=== PATIENT | male | born 1940 | race Caucasian/White ===

== ENCOUNTER → 2017-07-19 | Outpatient (CLI) | payer OTHER, MEDICARE ==
[~2017-07-19] MED LIST: ASPI325T17 PO; ATEN25TA PO; BUDE10.2 INH; FLUT1DIS3 INH; IPRA3AMP18 NEB; LEVO750T26 PO; METH4TAB2 PO; METO50TA82 PO; ONDA4VIA4 PO; OXYC-302 PO; POLY17PO5 PO; TIOT18CA INH; TRAM-47 PO
== END | disposition home or self-care (01) ==
LOC: CVU 09:12
PROVIDERS: ATTEND Surgery
DX: I70.293 Other atherosclerosis of native arteries of extremities, bilateral legs (principal); Z86.718 Personal history of other venous thrombosis and embolism
CPT/HCPCS: 93922; 93925; 93970

== ENCOUNTER → 2017-10-23 | Outpatient (CLI) | payer OTHER, MEDICARE | END | disposition home or self-care (01) | LOC: PETCFH 09:41 | PROVIDERS: ATTEND Registered Nurse | DX: R41.3 Other amnesia (principal) | CPT/HCPCS: 78608; A9552 ==

== ENCOUNTER → 2017-10-29 | Outpatient (CLI) | payer OTHER, MEDICARE | END | disposition home or self-care (01) | LOC: CARD 08:50 | PROVIDERS: ATTEND Registered Nurse | DX: R41.3 Other amnesia (principal) | CPT/HCPCS: 95819 ==

== ENCOUNTER → 2018-06-26 | Outpatient (CLI) | payer MEDICARE ==
[~2018-06-26] MED LIST changes: -ONDA4VIA4 PO; +ONDA4VIA8 PO
== END | disposition home or self-care (01) ==
LOC: CFH 13:26
PROVIDERS: ATTEND Family Medicine
DX: I35.8 Other nonrheumatic aortic valve disorders (principal); I34.8 Other nonrheumatic mitral valve disorders; I10 Essential (primary) hypertension; J44.9 Chronic obstructive pulmonary disease, unspecified; Z87.891 Personal history of nicotine dependence
CPT/HCPCS: 93306

== ENCOUNTER 2018-12-04 13:02 | Outpatient (CLI) | payer OTHER | END 2018-12-04 23:59 | disposition home or self-care (01) | LOC: CARD 13:02 | PROVIDERS: ATTEND Student in an Organized Health Care Education/Training Program | DX: R41.82 Altered mental status, unspecified (principal) | CPT/HCPCS: 95819 ==

== ENCOUNTER 2019-01-29 16:50 | Inpatient (IN) | payer MEDICARE, OTHER ==
[~2019-01-29] VITALS: Ht 167.6 cm; Wt 63.0 kg
[~2019-01-29 16:50] MED LIST changes: +ONDA4VIA60 PO; -ONDA4VIA8 PO
[2019-01-29] MEDS ORDERED: SODIUM CHLORIDE FLUSH 10ML SYR IVF ONE (17:00)
[2019-01-29] MEDS ORDERED: methylPREDNISolone SOD SUCC 125 MG/2 ML IVP ONE (17:00)
[2019-01-29] MEDS ORDERED: ALBUTEROL/IPRATROPIUM 2.5MG/0.5MG, 3 ML NPPB SCH (17:00)
[2019-01-29] MEDS ORDERED: ACETAMINOPHEN 325 MG TABLET PO ONE (17:00)
[2019-01-29] MEDS ORDERED: methylPREDNISolone SOD SUCC 125 MG/2 ML ONE ×2 (17:18→17:29)
[2019-01-29] MEDS ORDERED: ACETAMINOPHEN 325 MG TABLET ONE ×2 (17:18→17:29)
[2019-01-29] MEDS ORDERED: ALBUTEROL/IPRATROPIUM 2.5MG/0.5MG, 3 ML ONE ×2 (17:19)
[2019-01-29 17:28] LABS: BASOPHILS # (AUTO) 0.01 x10^3/uL (0-0.1); BASOPHILS % (AUTO) 0 % (0-1); EOSINOPHILS % (AUTO) 0 % (1-7); LYMPHOCYTES # (AUTO) 0.44 x10^3/uL (1-3.4); LYMPHOCYTES % (AUTO) 6 % (22-44); MD NO; MEAN CORPUSCULAR HEMOGLOBIN 30.1 pg (27.5-34.5); MEAN CORPUSCULAR HGB CONC 33.9 g/dL (33.2-36.2); MEAN CORPUSCULAR VOLUME 88.9 fL (81-97); MEAN PLATELET VOLUME 6.9 fL (7.4-10.4); MONOCYTES # (AUTO) 0.37 x10^3/uL (0.2-0.8); MONOCYTES % (AUTO) 5 % (2-9); NEUTROPHILS # (AUTO) 6.53 x10^3/uL (1.8-6.8); NEUTROPHILS % (AUTO) 89 % (42-75); PLATELET COUNT 232 x10^3/uL (130-400); RED BLOOD COUNT 4.27 x10^6/uL (4.38-5.82); RED CELL DISTRIBUTION WIDTH 13.4 % (9.4-14.8)
[2019-01-29 17:38] LABS: ALBUMIN 3.8 g/dL (3.4-5.0); ANION GAP 9 mmol/L (5-15); CALCIUM 9.5 mg/dL (8.5-10.1); CHLORIDE 103 mmol/L (98-107); CREATININE 1.11 mg/dL (0.7-1.3)
[2019-01-29 17:41] LABS: ALANINE AMINOTRANSFERASE 17 U/L (12-78); ALKALINE PHOSPHATASE 92 U/L (45-117); TOTAL PROTEIN 7.4 g/dL (6.4-8.2)
[2019-01-29] MEDS ORDERED: METO-95 PO (17:50)
[2019-01-29] MEDS ORDERED: CELE200C PO (17:51)
[2019-01-29] MEDS ORDERED: FLUT1BLS3 INH (17:51)
[2019-01-29] MEDS ORDERED: METH5TAB6 PO (17:52)
[2019-01-29] MEDS ORDERED: TRAZ50TA66 PO (17:53)
[2019-01-29] MEDS ORDERED: CEFTRIAXONE PMX 1GM/50ML 50 ML IVPB ONE (18:00)
[2019-01-29] MEDS ORDERED: OMNIPAQUE 350 MG/ML, 100ML BOTTLE ONE (18:09)
[2019-01-29] MEDS ORDERED: CEFTRIAXONE PMX 1GM/50ML 50 ML ONE (18:14)
[2019-01-29] MEDS ORDERED: FENTANYL PF 250 MCG/5ML ONE (18:59)
[2019-01-29] MEDS ORDERED: MIDAZOLAM 1 MG/ML, 2ML ONE (18:59)
[2019-01-29] MEDS ORDERED: METRONIDAZOLE PMX 500MG/100ML 100 ML IV ONE (19:00)
--- NOTE | 2019-01-29 19:01 | NUR ---
SBAR TELEPHONE HAND-OFF REPORT GIVEN TO RN TATE IN PRE-OP.
[2019-01-29] MEDS ORDERED: METRONIDAZOLE PMX 500MG/100ML 100 ML ONE (19:03)
[2019-01-29] MEDS ORDERED: BUPIVACAINE/EPI 0.5% 1:200K ONE (19:07)
--- NOTE | 2019-01-29 19:07 | NUR ---
IV FLAGYL STARTED. PATIENT TO PRE-OP.
[2019-01-29] MEDS ORDERED: morphine SULFATE 10 MG/ML, 1ML IVPush PRN (19:30)
[2019-01-29] MEDS ORDERED: OXYcodone 5 MG/5 ML ORAL.SOL UDC PO PRN (19:30)
[2019-01-29] MEDS ORDERED: HALOPERIDOL 5 MG/ML IV PRN (19:30)
[2019-01-29] MEDS ORDERED: HYDROmorphone 2 MG/ML, 1ML IVPush PRN (19:30)
[2019-01-29] MEDS ORDERED: hydrALAzine 20 MG/ML, 1ML IV PRN (19:30)
[2019-01-29] MEDS ORDERED: MEPERIDINE/PF 25MG/0.5ML IVPush PRN (19:30)
[2019-01-29] MEDS ORDERED: ONDANSETRON 2MG/ML, 2ML IVPush PRN (19:30)
[2019-01-29] MEDS ORDERED: FENTANYL PF 100 MCG/2ML IV PRN (19:30)
[2019-01-29] MEDS ORDERED: ACETAMINOPHEN 325 MG TABLET PO PRN (19:30)
[2019-01-29] MEDS ORDERED: ALBUTEROL/IPRATROPIUM 2.5MG/0.5MG, 3 ML NPPB PRN (19:30)
[2019-01-29] MEDS ORDERED: PROMETHAZINE 25 MG/ML, 1ML IV PRN (19:30)
[2019-01-29] MEDS ORDERED: ROCURONIUM 10MG/ML,5ML ONE (20:03)
[2019-01-29] MEDS ORDERED: LIDOCAINE-MPF 2% ,5ML ONE (20:03)
[2019-01-29] MEDS ORDERED: PROPOFOL 10 MG/ML, 20ML ONE (20:03)
[2019-01-29] MEDS ORDERED: PHENYLEPHRINE 10 MG/ML ONE (20:03)
[2019-01-29] MEDS ORDERED: ONDANSETRON 2MG/ML, 2ML ONE (20:04)
[2019-01-29] MEDS ORDERED: DEXAMETHASONE 4 MG/ML, 1ML ONE (20:04)
[2019-01-29] MEDS: TRAZODONE 50MG TABLET PO SCH (21:00)
[2019-01-29] MEDS ORDERED: ALBUTEROL/IPRATROPIUM 2.5MG/0.5MG, 3 ML HHN PRN (22:30)
[2019-01-29] MEDS ORDERED: NALOXONE 0.4 MG/ML, 1ML ONE (23:51)
[2019-01-30] MEDS ORDERED: NALOXONE 0.4 MG/ML, 1ML IVPush ONE
[2019-01-30 01:02] VITALS: BP 116/65
[2019-01-30 02:15] LABS: MICROSCOPIC AUTO
[2019-01-30 02:16] LABS: CULTURE INDICATED? NO
[2019-01-30 03:07] VITALS: BP 110/67
[2019-01-30] MEDS ORDERED: ZOSYN PER PHARMACY MC PRN (05:30)
[2019-01-30 05:34] LABS: MEAN CORPUSCULAR HEMOGLOBIN 29.1 pg (27.5-34.5); MEAN CORPUSCULAR HGB CONC 32.5 g/dL (33.2-36.2); MEAN CORPUSCULAR VOLUME 89.5 fL (81-97); MEAN PLATELET VOLUME 7.3 fL (7.4-10.4); PLATELET COUNT 196 x10^3/uL (130-400); RED BLOOD COUNT 3.48 x10^6/uL (4.38-5.82); RED CELL DISTRIBUTION WIDTH 13.8 % (9.4-14.8)
[2019-01-30 05:38] LABS: ANION GAP 4 mmol/L (5-15); CALCIUM 8.3 mg/dL (8.5-10.1); CHLORIDE 104 mmol/L (98-107)
[2019-01-30 05:41] LABS: CREATININE 1.09 mg/dL (0.7-1.3)
[2019-01-30] MEDS: LACTATED RINGERS 1,000 ML IV SCH ×2 (05:47→18:40)
[2019-01-30] MEDS: PIPERACILLIN/TAZO/PMX 4.5GM 100 ML IV SCH ×3 (05:54→18:39)
[2019-01-30 06:01] LABS: MD YES
[2019-01-30 06:05] LABS: BAND#(MANUAL) 1.63 x10^3/uL; BANDS%(MANUAL) 19 % (0-7); LYMPH#(MANUAL) 0.26 x10^3/uL (1-3.4); LYMPHS% (MANUAL) 3 % (22-44); METAMYELOCYTES# (MANUAL) 0.26 x10^3/uL (0-0); METAMYELOCYTES% (MANUAL) 3 % (0-1); MONOS#(MANUAL) 0.26 x10^3/uL (0.3-2.7); MONOS% (MANUAL) 3 % (2-9); SEG#(MANUAL) 6.19 x10^3/uL (1.8-6.8); SEGS% (MANUAL) 72 % (42-75)
[2019-01-30 06:06] LABS: <PLATELET ESTIMATE> ADEQUATE; <PLT MORPHOLOGY> NORMAL PLT MORPH; <RBC MORPHOLOGY> NORMAL
[2019-01-30 06:45] VITALS: BP 104/60
[2019-01-30] MEDS: METHIMAZOLE 5 MG TAB PO SCH (08:49)
[2019-01-30] MEDS: METOPROLOL SUCCINATE 100 MG TAB.ER.24H PO SCH (09:00)
[2019-01-30 12:44] VITALS: BP 109/56
[2019-01-30 19:45] VITALS: BP 128/62
[2019-01-30] MEDS: TRAZODONE 50MG TABLET PO SCH (22:42)
[2019-01-31] VITALS (7 sets, daily range): BP systolic 113–163; BP diastolic 67–88
[2019-01-31] MEDS: PIPERACILLIN/TAZO/PMX 4.5GM 100 ML IV SCH ×2 (01:02→06:42)
[2019-01-31] MEDS: LACTATED RINGERS 1,000 ML IV SCH (06:42)
[2019-01-31 08:35] LABS: MEAN CORPUSCULAR HEMOGLOBIN 29.6 pg (27.5-34.5); MEAN CORPUSCULAR HGB CONC 33.3 g/dL (33.2-36.2); MEAN CORPUSCULAR VOLUME 88.9 fL (81-97); MEAN PLATELET VOLUME 7.5 fL (7.4-10.4); PLATELET COUNT 213 x10^3/uL (130-400); RED BLOOD COUNT 2.96 x10^6/uL (4.38-5.82); RED CELL DISTRIBUTION WIDTH 14.2 % (9.4-14.8)
[2019-01-31] MEDS ORDERED: ONDANSETRON 2MG/ML, 2ML IV PRN (09:00)
[2019-01-31] MEDS ORDERED: morphine SULFATE 10 MG/ML, 1ML IV PRN (09:00)
[2019-01-31] MEDS ORDERED: HYDROmorphone 2 MG/ML, 1ML IVPush PRN (09:00)
[2019-01-31 09:08] LABS: MD YES
[2019-01-31 09:10] LABS: <PLATELET ESTIMATE> ADEQUATE; <PLT MORPHOLOGY> NORMAL PLT MORPH; <RBC MORPHOLOGY> NORMAL; BAND#(MANUAL) 0.72 x10^3/uL; BANDS%(MANUAL) 10 % (0-7); LYMPH#(MANUAL) 0.86 x10^3/uL (1-3.4); LYMPHS% (MANUAL) 12 % (22-44); METAMYELOCYTES# (MANUAL) 0.07 x10^3/uL (0-0); METAMYELOCYTES% (MANUAL) 1 % (0-1); MONOS% (MANUAL) 7 % (2-9); SEG#(MANUAL) 5.04 x10^3/uL (1.8-6.8); SEGS% (MANUAL) 70 % (42-75)
[2019-01-31] MEDS ORDERED: ALBUTEROL SULFATE 2.5 MG/3 ML NPPB PRN (10:30)
[2019-01-31 10:40] LABS: ANION GAP 6 mmol/L (5-15); CALCIUM 8.3 mg/dL (8.5-10.1); CHLORIDE 103 mmol/L (98-107); CREATININE 0.98 mg/dL (0.7-1.3)
[2019-01-31] MEDS: METRONIDAZOLE PMX 500MG/100ML 100 ML IVPB SCH ×2 (10:49→18:26)
[2019-01-31] MEDS: METOPROLOL SUCCINATE 100 MG TAB.ER.24H PO SCH (10:50)
[2019-01-31] MEDS: POTASSIUM CHLORIDE 20 MEQ in LACTATED RINGERS 1,000 ML IV SCH ×2 (10:50→22:04)
[2019-01-31] MEDS: ACETAMINOPHEN 325 MG TABLET PO PRN ×3 (11:03→22:05)
[2019-01-31] MEDS: ENOXAPARIN 40 MG/0.4 ML SQ SCH (14:50)
[2019-01-31] MEDS: CEFOTETAN PMX 1GM/50ML 50 ML IVPB SCH (16:18)
[2019-01-31] MEDS: METHIMAZOLE 5 MG TAB PO SCH (16:30)
[2019-01-31] MEDS: TRAZODONE 50MG TABLET PO SCH (22:05)
[2019-02-01] MEDS: METRONIDAZOLE PMX 500MG/100ML 100 ML IVPB SCH ×3 (02:01→19:40)
[2019-02-01 03:27] VITALS: BP 157/75
[2019-02-01] MEDS: CEFOTETAN PMX 1GM/50ML 50 ML IVPB SCH ×2 (04:35→16:08)
[2019-02-01 07:54] VITALS: BP 137/69
[2019-02-01 09:25] LABS: BASOPHILS # (AUTO) 0.01 x10^3/uL (0-0.1); BASOPHILS % (AUTO) 0 % (0-1); EOSINOPHILS # (AUTO) 0.07 x10^3/uL (0-0.4); EOSINOPHILS % (AUTO) 1 % (1-7); LYMPHOCYTES # (AUTO) 0.57 x10^3/uL (1-3.4); LYMPHOCYTES % (AUTO) 8 % (22-44); MD NO; MEAN CORPUSCULAR HGB CONC 32.7 g/dL (33.2-36.2); MEAN CORPUSCULAR VOLUME 88.7 fL (81-97); MONOCYTES # (AUTO) 0.48 x10^3/uL (0.2-0.8); MONOCYTES % (AUTO) 7 % (2-9); NEUTROPHILS # (AUTO) 5.97 x10^3/uL (1.8-6.8); NEUTROPHILS % (AUTO) 84 % (42-75); PLATELET COUNT 244 x10^3/uL (130-400); RED BLOOD COUNT 3.19 x10^6/uL (4.38-5.82); RED CELL DISTRIBUTION WIDTH 13.8 % (9.4-14.8)
[2019-02-01 09:33] LABS: ALBUMIN 2.6 g/dL (3.4-5.0); ANION GAP 5 mmol/L (5-15); CALCIUM 8.4 mg/dL (8.5-10.1); CHLORIDE 103 mmol/L (98-107); CREATININE 1.08 mg/dL (0.7-1.3)
[2019-02-01 09:48] LABS: CLOSTRIDIUM DIFFICILE ANTIGEN NEGATIVE; CLOSTRIDIUM DIFFICILE TOXIN NEGATIVE (Negative)
[2019-02-01] MEDS: TRELEGY ELLIPTA HOMEINH SCH (09:53)
[2019-02-01] MEDS: ENOXAPARIN 40 MG/0.4 ML SQ SCH (09:53)
[2019-02-01] MEDS: [UNRECOGNIZED DRUG - OTHER] HOMEINH SCH (09:53)
[2019-02-01] MEDS: METHIMAZOLE 5 MG TAB PO SCH (09:53)
[2019-02-01] MEDS: POTASSIUM CHLORIDE 20 MEQ in LACTATED RINGERS 1,000 ML IV SCH (09:53)
[2019-02-01] MEDS: METOPROLOL SUCCINATE 100 MG TAB.ER.24H PO SCH (09:53)
[2019-02-01 14:57] VITALS: BP 130/69
[2019-02-01 19:45] VITALS: BP 140/67
[2019-02-01] MEDS: TRAZODONE 50MG TABLET PO SCH (21:23)
[2019-02-02 03:13] VITALS: BP 165/83
[2019-02-02] MEDS: METRONIDAZOLE PMX 500MG/100ML 100 ML IVPB SCH ×2 (03:21→10:20)
[2019-02-02] MEDS: CEFOTETAN PMX 1GM/50ML 50 ML IVPB SCH ×2 (04:28→16:00)
[2019-02-02 06:52] LABS: MEAN CORPUSCULAR HEMOGLOBIN 29.4 pg (27.5-34.5); MEAN CORPUSCULAR HGB CONC 32.7 g/dL (33.2-36.2); MEAN CORPUSCULAR VOLUME 89.9 fL (81-97); MEAN PLATELET VOLUME 7.1 fL (7.4-10.4); PLATELET COUNT 248 x10^3/uL (130-400); RED BLOOD COUNT 3.04 x10^6/uL (4.38-5.82); RED CELL DISTRIBUTION WIDTH 13.6 % (9.4-14.8)
[2019-02-02 07:00] LABS: ANION GAP 5 mmol/L (5-15); CALCIUM 8.5 mg/dL (8.5-10.1); CHLORIDE 104 mmol/L (98-107); CREATININE 1.03 mg/dL (0.7-1.3)
[2019-02-02 07:45] LABS: BASOPHILS # (AUTO) 0.04 x10^3/uL (0-0.1); BASOPHILS % (AUTO) 1 % (0-1); EOSINOPHILS # (AUTO) 0.35 x10^3/uL (0-0.4); EOSINOPHILS % (AUTO) 5 % (1-7); LYMPHOCYTES # (AUTO) 0.68 x10^3/uL (1-3.4); LYMPHOCYTES % (AUTO) 10 % (22-44); MD SCAN; MONOCYTES # (AUTO) 0.57 x10^3/uL (0.2-0.8); MONOCYTES % (AUTO) 8 % (2-9); NEUTROPHILS # (AUTO) 5.15 x10^3/uL (1.8-6.8); NEUTROPHILS % (AUTO) 76 % (42-75)
[2019-02-02 07:59] VITALS: BP 152/73
[2019-02-02] MEDS ORDERED: POTASSIUM CHLORIDE 20 MEQ in LACTATED RINGERS 1,000 ML IV SCH (10:00)
[2019-02-02] MEDS: METOPROLOL SUCCINATE 100 MG TAB.ER.24H PO SCH (10:20)
[2019-02-02] MEDS: METHIMAZOLE 5 MG TAB PO SCH (10:20)
[2019-02-02] MEDS: ENOXAPARIN 40 MG/0.4 ML SQ SCH (10:21)
[2019-02-02] MEDS: TRELEGY ELLIPTA HOMEINH SCH (10:22)
[2019-02-02] MEDS: [UNRECOGNIZED DRUG - OTHER] HOMEINH SCH (10:22)
[2019-02-02 13:23] VITALS: BP 128/73
[2019-02-02 16:05] VITALS: BP 127/65
[2019-02-02] MEDS ORDERED: METR500T PO (16:06)
[2019-02-02] MEDS ORDERED: CIPR500T3 PO (16:25)
== END 2019-02-02 18:40 | disposition home health service (06) | DRG 853 ==
LOC: ED 18:18 → EDIP 18:19 → ED 18:41 → 5SO 23:58 → 4NOR 01-31 20:20
PROVIDERS: ADMIT Internal Medicine; ATTEND Internal Medicine
PROC: 0DTJ4ZZ Resection of Appendix, Percutaneous Endoscopic Approach (ICD-10-PCS; principal; 2019-01-30)
DX: A41.9 Sepsis, unspecified organism (principal); J15.9 Unspecified bacterial pneumonia; K35.20 Acute appendicitis with generalized peritonitis, without abscess; J44.0 Chronic obstructive pulmonary disease with (acute) lower respiratory infection; F03.90 Unspecified dementia, unspecified severity, without behavioral disturbance, psychotic disturbance, mood disturbance, and anxiety; F32.9 Major depressive disorder, single episode, unspecified; I10 Essential (primary) hypertension; I73.9 Peripheral vascular disease, unspecified; R19.7 Diarrhea, unspecified; M19.90 Unspecified osteoarthritis, unspecified site; R09.02 Hypoxemia; Z82.0 Family history of epilepsy and other diseases of the nervous system; Z86.79 Personal history of other diseases of the circulatory system; Z87.891 Personal history of nicotine dependence; Z99.81 Dependence on supplemental oxygen
CPT/HCPCS: 36415; 71045; 74177; 80048; 80053; 81001; 82040; 82803; 83605; 84145; 85025; 87040; 87324; 88304; 93005; 96365; 96375; G0378; J0696; J1100; J1650; J2250; J2310; J2405; J2543; J2704; J3010; J3480; Q9967; J2370; J2930; J3490; J7120